=== PATIENT | male | born 1990 | race African-American/Black ===

== ENCOUNTER 2018-08-29 15:00 | Emergency (ER) | payer OTHER ==
[~2018-08-29] VITALS: Ht 185.4 cm; Wt 158.8 kg
[2018-08-29] MEDS ORDERED: NKM (15:21)
[2018-08-29 15:30] VITALS: BP 136/90
--- NOTE | 2018-08-29 15:30 | NUR ---
ED Nurse Note: pt walked in to ED due to sore throat for 2 weeks. pt noted voice changes. denies SOB at this time. AAO x4. intermittent dry cough noted. respirations even and non-labored noted. will wait for the further order.
[2018-08-29] MEDS ORDERED: Dexamethasone 4mg/ml vial IM ONE (15:45)
--- NOTE | 2018-08-29 15:49 | Emergency Room Report ---
History of Present Illness General Chief Complaint: Sore Throat Source: Patient Present Illness HPI 28-year-old male presents to the emergency department complaining of 8 out of 10 severity sore throat with white mucus stuck to the back of his throat which is causing him to choke, cough frequently. Patient also reports nasal congestion he states that 2 weeks ago he had URI like symptoms that did resolve however he states then he became sick again but now with throat symptoms. He reports initial subjective fevers denies chills denies history of immune compromise and has no significant past medical history. Patient states that swallowing or laying on his back exacerbates his symptoms he states that during the day when he sitting upright and not eating anything his throat feels slightly better. Patient states he has not taken any counter medications for any of his symptoms. Denies ear pain, high fevers, lethargy, neck pain/ stiffness, irritability, photophobia dehydration, N/V/D. Denies Cp, Palpitations , LOC, AMS, seizures, paresthesias, or changes in Hearing or vision, or a Sudden severe YOON. Denies hx of smoking, reports having asthma in the past. Allergies: Coded Allergies: No Known Allergies (Unverified , 08/29/18) Patient History Past Medical History: see triage record Past Surgical History: none Pertinent Family History: none Reviewed Nursing Documentation: PMH: Agreed; PSxH: Agreed Nursing Documentation-PM Past Medical History: No Stated History Review of Systems All Other Systems: negative except mentioned in HPI Physical Exam Vital Signs Date Time Temp Pulse Resp B/P (MAP) Pulse Ox O2 Delivery O2 Flow Rate FiO2 08/29/18 15:13 97.9 88 16 136/90 (105) 96 Room Air Sp02 EP Interpretation: reviewed, normal General Appearance: no apparent distress, alert, GCS 15, non-toxic Head: normocephalic, atraumatic Eyes: bilateral eye normal inspection, bilateral eye PERRL ENT: hearing grossly normal, normal voice, TMs + canals normal, uvula midline, moist mucus membranes, nasal congestion, tonsillar swelling, pharyngeal erythema , tonsillar exudate Neck: full range of motion Respiratory: chest non-tender, lungs clear, normal breath sounds, no respiratory distress, no wheezing, speaking full sentences Cardiovascular #1: regular rate, rhythm Musculoskeletal: back normal, gait/station normal, normal range of motion, non- tender Neurologic: alert, oriented x3, responsive, motor strength/tone normal, sensory intact, speech normal, grossly normal Psychiatric: judgement/insight normal Lymphatic: no adenopathy Medical Decision Making PA Attestation Dr. Denson is my supervising Physician whom patient management has been discussed with. Diagnostic Impression: Primary Impression: Pharyngitis, acute Qualified Codes: J02.0 - Streptococcal pharyngitis Additional Impression: Post-nasal drainage ER Course 28-year-old male presents to the emergency department complaining of 8 out of 10 severity sore throat with white mucus stuck to the back of his throat which is causing him to choke, cough frequently. Patient also reports nasal congestion he states that 2 weeks ago he had URI like symptoms that did resolve however he states then he became sick again but now with throat symptoms. He reports initial subjective fevers denies chills denies history of immune compromise and has no significant past medical history. Patient states that swallowing or laying on his back exacerbates his symptoms he states that during the day when he sitting upright and not eating anything his throat feels slightly better. Patient states he has not taken any counter medications for any of his symptoms. Denies ear pain, high fevers, lethargy, neck pain/ stiffness, irritability, photophobia dehydration, N/V/D. Denies Cp, Palpitations , LOC, AMS, seizures, paresthesias, or changes in Hearing or vision, or a Sudden severe YOON. Denies hx of smoking, reports having asthma in the past. Ddx considered but are not limited to: pharyngitis, strep, [employer], ludwigs angina, URI Vital signs: are WNL, pt. is afebrile H&PE are most consistent with: pharyngitis presumed strep. ORDERS: None required at this time as the diagnosis is clinical ED INTERVENTIONS: -8mg Decadron IM DISCHARGE: At this time pt. is stable for d/c to home. Will provide printed patient care instructions, and any necessary prescriptions. Care plan and follow up instructions have been discussed with the patient prior to discharge. Last Vital Signs Date Time Temp Pulse Resp B/P (MAP) Pulse Ox O2 Delivery O2 Flow Rate FiO2 08/29/18 15:13 97.9 88 16 136/90 (105) 96 Room Air Disposition: HOME, SELF-CARE Condition: Stable Patient Instructions: Sore Throat Additional Instructions: Take medications as directed. Follow up with a Primary Care Provider in 3-5 days, even if your symptoms have resolved. --Please review list of primary care clinics, if you do not already have a primary care provider Return sooner to ED if new symptoms occur, or current symptoms become worse. - Please note that this Emergency Department Report was dictated using [employer] transcription supervisor technology software, occasionally this can lead to erroneous entry secondary to interpretation by the dictation equipment. Carrol Foy Aug 29, 2018 15:49
[2018-08-29] MEDS ORDERED: ZYRTEC-D TABLE1 EACH ORAL (15:52)
[2018-08-29] MEDS ORDERED: AUGMENTIN 875-1 EAC1 ORAL (15:52)
[2018-08-29] MEDS ORDERED: IBUPROFEN600 MG ORAL (15:52)
[2018-08-29] MEDS ORDERED: MUCINEX1200 MG PO (15:52)
[2018-08-29 16:03] VITALS: BP 122/78
--- NOTE | 2018-08-29 16:03 | NUR ---
ER DISCHARGE NOTE: Patient is cleared to be discharged per ERMD with friend, pt is aox4, on room air, with stable vital signs. pt was given dc and prescription instructions, pt was able to verbalize understanding, pt id band removed. pt is able to ambulate with steady gait. pt took all belongings.
== END 2018-08-29 16:03 | disposition home or self-care (01) ==
LOC: EMR 15:50
DX: J02.0 Streptococcal pharyngitis (principal); R09.82 Postnasal drip
CPT/HCPCS: 96372; 99283; J1100

== ENCOUNTER 2018-11-26 23:41 | Emergency (ER) | payer OTHER ==
[~2018-11-26] VITALS: Ht 185.4 cm; Wt 154.2 kg
[~2018-11-26 23:41] MED LIST: AUGMENTIN 875-1 EAC1 ORAL; IBUPROFEN600 MG ORAL; MUCINEX1200 MG PO; NKM; ZYRTEC-D TABLE1 EACH ORAL
--- NOTE | 2018-11-26 23:59 | NUR ---
ED Nurse Note: pt walked in to ED C/O right eye drainage and redness for the last three days. denies visual changes. pt is alert x4. VSS
[2018-11-27] VITALS: BP 130/80
--- NOTE | 2018-11-27 00:02 | Emergency Room Report ---
History of Present Illness General Chief Complaint: Eye Problems Source: Patient Present Illness HPI 28-year-old male presents with right eye discharge x3 days no fever no chills no changes in vision, he endorses when he wakes up he has crusting of the right eye no aggravating alleviating factors severity is mild, constant patient presents for evaluation. Allergies: Coded Allergies: No Known Allergies (Unverified , 11/26/18) Patient History Past Medical History: see triage record Reviewed Nursing Documentation: PMH: Agreed; PSxH: Agreed Review of Systems All Other Systems: negative except mentioned in HPI Physical Exam Vital Signs Date Time Temp Pulse Resp B/P (MAP) Pulse Ox O2 Delivery O2 Flow Rate FiO2 11/26/18 23:49 98.6 86 20 130/85 (100) 94 Room Air General Appearance: well appearing, no apparent distress Head: normocephalic, atraumatic Eyes: right eye other - Right eye injected, crusting around the right eye; bilateral eye PERRL, bilateral eye EOMI ENT: hearing grossly normal, normal voice Neck: full range of motion, supple Respiratory: no respiratory distress, speaking full sentences Neurologic: alert, normal gait Psychiatric: mood/affect normal Skin: no rash Medical Decision Making Diagnostic Impression: Primary Impression: Conjunctivitis Qualified Codes: H10.31 - Unspecified acute conjunctivitis, right eye ER Course 28-year-old male presents with conjunctivitis of the right eye will provide antibiotics disposition home with return precautions Last Vital Signs Date Time Temp Pulse Resp B/P (MAP) Pulse Ox O2 Delivery O2 Flow Rate FiO2 11/26/18 23:49 98.6 86 20 130/85 (100) 94 Room Air Disposition: HOME, SELF-CARE Condition: Stable Referrals: [facility]ERR[facility] (PCP) [facility] Viktoria Dhillon [facility]. [facility] Patient Instructions: Bacterial Conjunctivitis, [id number] Additional Instructions: The patient was provided with discharge instructions, notified to follow-up with a primary care doctor and or specialist in the next 24-48 hours, and to return to the ED if they have worsening of their symptoms. Please note that this report is being documented using DRAGON technology. This can lead to erroneous entry secondary to incorrect interpretation by the dictating instrument. PLEASE APPLY ERYTHROMYCIN OINTMENT 6X A DAY FOR 10 DAYS Chemo Bates MD 26, 2019 00:02
[2018-11-27] MEDS ORDERED: Erythromycin Opth Ointment 3.5gm ONE (00:03)
[2018-11-27 00:07] VITALS: BP 135/84
--- NOTE | 2018-11-27 00:07 | NUR ---
ER DISCHARGE NOTE: Patient is cleared to be discharged per ERMD, pt is aox4, on room air, with stable vital signs. pt was given dc and prescription instructions, pt was able to verbalize understanding, pt id band removed without complications. pt is able to ambulate with steady gait. pt took all belongings.
[2018-11-27] MEDS ORDERED: Erythromycin Opth Ointment 3.5gm RIGHT EYE SCH (21:00)
== END 2018-11-27 00:07 | disposition home or self-care (01) ==
LOC: EMR 23:54
DX: H10.31 Unspecified acute conjunctivitis, right eye (principal)
CPT/HCPCS: 99282